=== PATIENT | female | born 1945 | race Caucasian/White ===

== ENCOUNTER → 2017-03-21 | Outpatient (CLI) | payer MEDICARE, OTHER ==
[~2017-03-21] MED LIST: ATENPOW PO; PERCOCET PO; [UNRECOGNIZED DRUG - OTHER] PO
--- NOTE | 2017-03-22 08:45 | REP ---
MR BRAIN WITHOUT CONTRAST: HISTORY: Concussion. Scattered punctate areas of increased signal intensity on T2-weighted images are present in the periventricular and subcortical white matter. This represents small vessel ischemic disease. There is no intraparenchymal hemorrhage, infarct, mass, or midline shift. The ventricular system is normal in appearance. There is no extracerebral collection. The sinuses are clear. IMPRESSION: Minimal small vessel ischemic disease. Signed by Jarrod Marcum MD 03/22/2017 08:46 A
== END ==
LOC: M RAD 17:42
PROVIDERS: ATTEND Internal Medicine
DX: S06.0X1A Concussion with loss of consciousness of 30 minutes or less, initial encounter (principal); W18.30XA Fall on same level, unspecified, initial encounter; Y92.009 Unspecified place in unspecified non-institutional (private) residence as the place of occurrence of the external cause

== ENCOUNTER → 2017-06-06 | Outpatient (REF) ==
[~2017-06-06] MED LIST changes: +ACEP650S PR; +ACET1TAB17 PO; +ASPI1TAB PO; +ATOR1TAB19 PO; +CELE1CAP9 PO; +COLA100C5 PO; +COZA1TAB PO; +DULC10SU2 PR; +ENEMENE16 PR; +FERR325T16 PO; +FLUO20CA19 PO; +FOLI1TAB4 PO; +K-TA1TAB PO; +LOPR1TAB6 PO; +METO25TA4 PO; +MILKSUS PO; +NORC1TAB4 PO; +POTA10CA PO; +QVAR1AER2 INH; +folic acid PO
[2017-06-06 10:38] LABS: MEAN CORPUSCULAR HEMOGLOBIN 30.2 pg (27.0-33.0); MEAN CORPUSCULAR VOLUME 91.5 fl (80.0-96.0); RED CELL DISTRIBUTION WIDTH 13.7 % (11.5-14.5); WHITE BLOOD COUNT 13.2 K/mm3 (4.0-10.0)
[2017-06-06 10:50] LABS: ANION GAP 9 MEQ/L (8-16); BLOOD UREA NITROGEN 11 MG/DL (7-18); CALCIUM LEVEL 8.7 MG/DL (8.8-10.2); CARBON DIOXIDE LEVEL 28 MEQ/L (21-32); CHLORIDE LEVEL 104 MEQ/L (98-107); CREATININE FOR GFR 0.73 MG/DL (0.55-1.02); GLOMERULAR FILTRATION RATE > 60.0 (>39); GLUCOSE, FASTING 127 MG/DL (83-110); POTASSIUM SERUM 4.1 MEQ/L (3.5-5.1); SODIUM LEVEL 141 MEQ/L (136-145)
== END ==
PROVIDERS: ATTEND Internal Medicine
DX: I10 Essential (primary) hypertension (principal)

== ENCOUNTER → 2017-06-12 | Outpatient (REF) | payer MEDICARE, OTHER ==
[2017-06-12 11:55] LABS: ANION GAP 14 MEQ/L (8-16); BLOOD UREA NITROGEN 13 MG/DL (7-18); CARBON DIOXIDE LEVEL 23 MEQ/L (21-32); CHLORIDE LEVEL 105 MEQ/L (98-107); CREATININE FOR GFR 0.74 MG/DL (0.55-1.02); GLOMERULAR FILTRATION RATE > 60.0 (>39); GLUCOSE, FASTING 134 MG/DL (83-110); POTASSIUM SERUM 4.8 MEQ/L (3.5-5.1); SODIUM LEVEL 142 MEQ/L (136-145)
== END ==
PROVIDERS: ATTEND Internal Medicine
DX: I10 Essential (primary) hypertension (principal)

== ENCOUNTER → 2017-06-13 | Outpatient (REF) ==
[2017-06-13 11:47] LABS: MEAN CORPUSCULAR HEMOGLOBIN 30.4 pg (27.0-33.0); MEAN CORPUSCULAR HGB CONC 33.2 g/dl (32.0-36.5); MEAN CORPUSCULAR VOLUME 91.5 fl (80.0-96.0); RED CELL DISTRIBUTION WIDTH 13.7 % (11.5-14.5); WHITE BLOOD COUNT 11.5 K/mm3 (4.0-10.0)
== END ==
PROVIDERS: ATTEND Internal Medicine
DX: I10 Essential (primary) hypertension (principal)

== ENCOUNTER 2017-06-15 12:01 | Observation (INO) | payer MEDICARE, OTHER ==
[~2017-06-15] VITALS: Ht 170.2 cm; Wt 124.0 kg
[~2017-06-15 12:01] MED LIST changes: -ACEP650S PR; -ACET1TAB17 PO; -ASPI1TAB PO; -ATOR1TAB19 PO; -CELE1CAP9 PO; -COLA100C5 PO; -COZA1TAB PO; -DULC10SU2 PR; -ENEMENE16 PR; -FERR325T16 PO; -FLUO20CA19 PO; -FOLI1TAB4 PO; -K-TA1TAB PO; -LOPR1TAB6 PO; -METO25TA4 PO; -MILKSUS PO; -NORC1TAB4 PO; -POTA10CA PO; -QVAR1AER2 INH; -folic acid PO
[2017-06-15] MEDS ORDERED: ATOR1TAB19 PO (12:22)
[2017-06-15] MEDS ORDERED: FERR325T16 PO (12:22)
[2017-06-15] MEDS ORDERED: K-TA1TAB PO (12:22)
[2017-06-15] MEDS ORDERED: folic acid PO (12:22)
[2017-06-15] MEDS ORDERED: QVAR1AER2 INH (12:22)
[2017-06-15] MEDS ORDERED: COLA100C5 PO (12:22)
[2017-06-15] MEDS ORDERED: COZA1TAB PO (12:22)
[2017-06-15] MEDS ORDERED: LOPR1TAB6 PO (12:22)
[2017-06-15] MEDS ORDERED: CELE1CAP9 PO (12:22)
[2017-06-15] MEDS ORDERED: ACET1TAB17 PO (12:22)
[2017-06-15] MEDS ORDERED: FLUO20CA19 PO (12:22)
[2017-06-15 13:12] LABS: BASO # 0.1 K/mm3 (0.0-0.2); BASO % 0.7 % (0.0-1.0); EOS % 8.3 % (0.0-3.0); LARGE UNSTAINED CELL # 0.1 K/mm3 (0.0-0.4); LARGE UNSTAINED CELL % 1.2 % (0.0-4.0); LYMPH # 1.6 K/mm3 (1.5-4.5); LYMPH % 12.5 % (24.0-44.0); MEAN CORPUSCULAR HEMOGLOBIN 29.4 pg (27.0-33.0); MEAN CORPUSCULAR HGB CONC 31.9 g/dl (32.0-36.5); MEAN CORPUSCULAR VOLUME 92.3 fl (80.0-96.0); MONO # 0.6 K/mm3 (0.0-0.8); MONO % 5.4 % (0.0-5.0); NEUTROPHILS # 8.6 K/mm3 (1.8-7.7); PLATELET COUNT, AUTOMATED 416 k/mm3 (150-450); RED CELL DISTRIBUTION WIDTH 13.8 % (11.5-14.5)
--- NOTE | 2017-06-15 13:17 | REP ---
Clinical: Chest pain with recent cardiac surgery . Comparison: 03/24/2013 . Technique: PA and lateral. Findings: The cardiac silhouette is normal in size. There is evidence for prior sternotomy and aortic valve repair. The lung rivas are clear and without acute consolidation, effusion, or pneumothorax. The skeletal structures are intact and normal. Impression: 1. Status post sternotomy and valve replacement. 2. No acute consolidation, effusion, or pneumothorax. Signed by Guanaco Hilton MD 06/15/2017 01:07 P
[2017-06-15 13:23] LABS: INR 1.05
[2017-06-15 13:25] LABS: ALBUMIN 3.3 GM/DL (3.2-5.2); ALBUMIN/GLOBULIN RATIO 1.14 (1.00-1.93); ALT/SGPT 18 U/L (12-78); ANION GAP 9 MEQ/L (8-16); BILIRUBIN,DIRECT 0.1 MG/DL (0.0-0.2); BILIRUBIN,TOTAL 0.4 MG/DL (0.2-1.0); BLOOD UREA NITROGEN 20 MG/DL (7-18); CARBON DIOXIDE LEVEL 27 MEQ/L (21-32); CHLORIDE LEVEL 107 MEQ/L (98-107); CREATININE FOR GFR 0.68 MG/DL (0.55-1.02); GLOMERULAR FILTRATION RATE > 60.0 (>39); GLUCOSE, FASTING 98 MG/DL (83-110); POTASSIUM SERUM 4.5 MEQ/L (3.5-5.1); SODIUM LEVEL 143 MEQ/L (136-145); TOTAL PROTEIN 6.2 GM/DL (6.4-8.2)
[2017-06-15 13:27] LABS: ALKALINE PHOSPHATASE 145 U/L (45-117); AST/SGOT 21 U/L (15-37)
--- NOTE | 2017-06-15 14:18 | REP ---
Clinical: Chest pain status post atrial valve repair. Findings: The patient is status post aortic valve repair with sternotomy. Atherosclerotic changes to the coronary arteries and thoracic aorta noted without cardiomegaly or pericardial effusion and no mediastinal or overlying subcutaneous tissue inflammatory changes or abnormalities are identified. The bilateral lung rivas demonstrate moderate COPD/emphysematous changes and minimal scattered basilar scarring. No focal consolidation, pleural effusion or pneumothorax. Tracheobronchial tree is patent. Musculoskeletal structures are intact. Limited evaluation of the upper abdomen demonstrates incompletely evaluated 7.7 cm left renal cyst. Impression: 1. Chronic pleuroparenchymal changes without evidence for acute process. 2. Mediastinum demonstrates evidence for recent sternotomy and aortic valve repair without acute process. 3. 7.7 cm left renal cyst. Signed by Guanaco Hilton MD 06/15/2017 02:09 P
[2017-06-15] MEDS ORDERED: ACEP650S PR (16:11)
[2017-06-15] MEDS ORDERED: ASPI1TAB PO (16:11)
[2017-06-15] MEDS ORDERED: MILKSUS PO (16:11)
[2017-06-15] MEDS ORDERED: FOLI1TAB4 PO (16:11)
[2017-06-15] MEDS ORDERED: METO25TA4 PO (16:11)
[2017-06-15] MEDS ORDERED: DULC10SU2 PR (16:11)
[2017-06-15] MEDS ORDERED: ENEMENE16 PR (16:11)
[2017-06-15] MEDS ORDERED: POTA10CA PO (16:11)
[2017-06-15] MEDS ORDERED: NORC1TAB4 PO (16:13)
[2017-06-15] MEDS ORDERED: NORCO, ANEXSIA 5/325MG TABLET (HYDROcodone/ACETAMINOPHEN) PO PRN (16:45)
[2017-06-15] MEDS ORDERED: MOM 30ML SUSPENSION UDC PO PRN (16:45)
[2017-06-15] MEDS ORDERED: BISACODYL 10 MG SUPP PR PRN (16:45)
[2017-06-15] MEDS ORDERED: ACETAMINOPHEN 650 MG SUPP PR PRN (16:45)
[2017-06-15] MEDS ORDERED: FLEET ENEMA PR PRN (16:45)
--- NOTE | 2017-06-15 17:22 | HPEPDOC ---
General Date of Admission 06/15/17 Attending Physician: GORDO DUVALL MD Chief Complaint The patient is a 71-year-old female admitted with a reason for visit of Chest Pain. History of Present Illness 71-year-old female with past medical history of hypertension, dyslipidemia, depression, anxiety, morbid obesity, aortic stenosis status post aortic valve replacement at [facility] on May 29, 2017 who is currently rehabilitating at [facility] presented to the ER with a chief complaint of chest pain. The patient states that she has been having intermittent chest pain over the last 1-2 days. She reports the pain to be sharp and located in the midsternal region. She reports that the sensation is fleeting, and denies any specific alleviating or aggravating factors. She does note that she did have a cardiac catheterization as well during that hospitalization, and was not found to have any occlusive coronary artery disease. She denies any fevers, chills, shortness of breath, abdominal pain, or any nausea/vomiting/diarrhea. In the ER, an EKG revealed nonspecific changes ST changes. Initial troponin is negative. However, the patient was noted to have an elevated D-Dimer level. The patient will be admitted to the hospitalist service to rule out ACS, and obtain a CTA of the Chest to rule out PE (dye allergy, requiring premedication regimen over 13 hours). Home Medications Scheduled (Celecoxib) 200 Mg Cap, 200 MG PO DAILY, (Reported) Aspirin (Aspirin 81) 81 Mg Tab, 81 MG PO DAILY, (Reported) Atorvastatin Calcium (Atorvastatin Calcium) 10 Mg Tab, 10 MG PO QHS, (Reported) Beclomethasone Dipropionate (Qvar) 80 Mcg/Act Aer, 2 PUFFS INH BID, (Reported) Docusate Sodium (Colace) 100 Mg Cap, 100 MG PO DAILY, (Reported) Ferrous Gluconate (Ferrous Gluconate) 324 Mg Tab, 324 MG PO BID, (Reported) Fluoxetine Hcl (Fluoxetine HCl) 20 Mg Cap, 20 MG PO QHS, (Reported) Folic Acid (Folic Acid) 1 Mg Tab, 1 MG PO DAILY, (Reported) Losartan Potassium (Cozaar) 25 Mg Tab, 25 MG PO DAILY, (Reported) Metoprolol Tartrate (Metoprolol Tartrate) 25 Mg Tab, 25 MG PO BID, (Reported) Potassium Chloride (Klor-Con M10) 10 Meq Tabcr, 10 MEQ PO DAILY, (Reported) Scheduled PRN Acetaminophen (Acetaminophen) 325 Mg Tab, 650 MG PO Q4H PRN for PAIN, (Reported) Acetaminophen (Acephen) 650 Mg Sup, 650 MG NE Q4H PRN for PAIN OR FEVER, ( Reported) Acetaminophen/Hydrocodone (Saunemin 5-325 mg) 1 Tab Tab, 1 TAB PO Q4H PRN for PAIN SCALE 6-10, (Reported) Bisacodyl (Dulcolax) 10 Mg Sup, 10 MG NE DAILY PRN for CONSTIPATION, (Reported) Milk Of Magnesia (Milk of Magnesia) 1,200 Mg/15 Ml Tamara, 30 ML PO DAILY PRN for CONSTIPATION, (Reported) Sodium Phosphate/Biphosphate (Enema 7-19 gm/118Ml) 1 Ada Ada, 1 ADA NE DAILY PRN for CONSTIPATION, (Reported) Allergies Coded Allergies: Contrast Media (Verified Allergy, Unknown, 07/17/06) Past Medical History Medical History As noted in HPI. Surgical History Hysterectomy, gastric bypass, aortic valve replacement Family History Significant Family History: No pertinent family hx Social History * Smoker: Denies Alcohol: occationally Drugs: denies Lives at home by herself, ambulates without an assistive device, and is functionally independent at baseline. Currently residing at [facility] for rehabilitation following aortic valve replacement. Review of Symptoms Other systems 10 point review of systems negative unless otherwise specified in HPI. Physical Examination General Exam: Positive: Alert, Cooperative, No Acute Distress ENT Exam: Positive: Atraumatic, Mucous membr. moist/pink Neck Exam: Negative: JVD Chest Exam: Positive: Clear to auscultation, Normal air movement, Other ( sternotomy scar noted, no erythema, tenderness, or purulent discharge noted from wound.) Heart Exam: Positive: Rate Normal, Normal S1, Normal S2 Abdomen Exam: Positive: Soft, Negative: Tenderness Extremity Exam: Negative: Tenderness, Swelling Psych Exam: Positive: Oriented x 3 Vital Signs Vital Signs Date Time Temp Pulse Resp B/P (MAP) Pulse Ox O2 Delivery O2 Flow Rate FiO2 06/15/17 15:31 70 98 06/15/17 15:27 132/63 (86) 06/15/17 14:27 18 06/15/17 12:17 97.6 Laboratory Data Labs 24H Laboratory Tests 2 06/15/17 12:49: Prothrombin Time 13.8, Prothromb Time International Ratio 1.05, Activated Partial Thromboplast Time 28.8, D-Dimer, Quantitative 2365.6H, Anion Gap 9, Glomerular Filtration Rate > 60.0, Calcium Level 9.0, Aspartate Amino Transf ( AST/SGOT) 21, Alanine Aminotransferase (ALT/SGPT) 18, Alkaline Phosphatase 145H , Total Bilirubin 0.4, Direct Bilirubin 0.1, Total Creatine Kinase 52, Creatine Kinase MB 1.0, Creatine Kinase MB Relative Index 1.92, Troponin I < 0.02, Total Protein 6.2L, Albumin 3.3, Albumin/Globulin Ratio 1.14, Lipase 144 06/15/17 12:50: White Blood Count 12.0H, Red Blood Count 4.01, Hemoglobin 11.8L, Hematocrit 37.0 , Mean Corpuscular Volume 92.3, Mean Corpuscular Hemoglobin 29.4, Mean Corpuscular Hemoglobin Concent 31.9L, Red Cell Distribution Width 13.8, Platelet Count 416, Neutrophils (%) (Auto) 72.0H, Lymphocytes (%) (Auto) 12.5L, Monocytes (%) (Auto) 5.4H, Eosinophils (%) (Auto) 8.3H, Basophils (%) (Auto) 0.7 , Neutrophils # (Auto) 8.6H, Lymphocytes # (Auto) 1.6, Monocytes # (Auto) 0.6, Eosinophils # (Auto) 1.0H, Basophils # (Auto) 0.1, Large Unclassified Cells % 1.2, Large Unclassified Cells # 0.1 CBC/BMP Laboratory Tests 06/15/17 12:49 06/15/17 12:50 Red Blood Count 4.01, Mean Corpuscular Volume 92.3, Mean Corpuscular Hemoglobin 29.4, Mean Corpuscular Hemoglobin Concent 31.9 L, Red Cell Distribution Width 13.8, Neutrophils (%) (Auto) 72.0 H, Lymphocytes (%) (Auto) 12.5 L, Monocytes (% ) (Auto) 5.4 H, Eosinophils (%) (Auto) 8.3 H, Basophils (%) (Auto) 0.7, Neutrophils # (Auto) 8.6 H, Lymphocytes # (Auto) 1.6, Monocytes # (Auto) 0.6, Eosinophils # (Auto) 1.0 H, Basophils # (Auto) 0.1 Plan / VTE VTE Prophylaxis Ordered?: Yes Plan Plan Chest Pain, R/O ACS, PE EKG with non-specific ST changes noted in precordial leads Initial troponin negative, will serially trend Patient's D-dimer also noted to be elevated--given the patient's vague symptoms and recent hx of surgery, we will need to rule out PE The patient does have a history of dye allergy (Hives, itchy throat--but no associated dyspnea, tongue swelling)---We will start the patient on a premedication regimen with Prednisone 50mg x 3 and Benadryl 50mg x 1 over 13 hours. I did discuss this regimen with Dr. Gardner of Radiology, and we will prepare the patient for our CT study accordingly. In the mean time we will start the patient on Lovenox 1mg/kg SC BID for treatment of PE, until it can be definitively ruled out. Bleeding risks, benefits, and alternative options discussed with the patient and daughter extensively at the bedside. We will cont to monitor on telemetry History of Aortic Stenosis s/p aortic valve replacement Replaced on 05/29/17 @ [facility] had a cardiac cath which showed no occlusive CAD according to the patient Obtain records order placed Continue aspirin, metoprolol, statin Hypertension, stable Continue losartan, metoprolol Dyslipidemia Continue statin Depression/anxiety, stable Continue fluoxetine DVT prophylaxis Already on Lovenox The patient will be admitted under the service of Dr. Duvall, who will begin to follow the patient on 06/16/17 at 7 AM. ANITRA LEES MD Jun 15, 2017 17:22
[2017-06-15] MEDS ORDERED: ENOXAPARIN 120 MG/0.8 ML SYR (J1650) SC ONE (17:30)
[2017-06-15] MEDS: predniSONE 50 MG TAB PO SCH (19:20)
[2017-06-15] MEDS ORDERED: FLUoxetine 20 MG CAP PO SCH (21:00)
[2017-06-15] MEDS ORDERED: ATORVASTATIN 10 MG TAB PO SCH (21:00)
[2017-06-15 22:04] VITALS: BP 170/64
[2017-06-15] MEDS: FERROUS GLUCONATE 324 MG TAB PO SCH (22:24)
[2017-06-15] MEDS: METOPROLOL TART 25 MG TABLET PO SCH (22:25)
[2017-06-15] MEDS ORDERED: ENOXAPARIN 120 MG/0.8 ML SYR (J1650) SC SCH (23:00)
[2017-06-15 23:58] VITALS: BP 126/63
[2017-06-16] MEDS: predniSONE 50 MG TAB PO SCH ×2 (00:13→06:07)
[2017-06-16 03:52] VITALS: BP 106/67
[2017-06-16] MEDS ORDERED: diphenhydrAMINE 50 MG CAP PO ONE (06:00)
[2017-06-16 06:25] LABS: MEAN CORPUSCULAR HEMOGLOBIN 30.5 pg (27.0-33.0); MEAN CORPUSCULAR HGB CONC 33.5 g/dl (32.0-36.5); MEAN CORPUSCULAR VOLUME 91.1 fl (80.0-96.0); RED CELL DISTRIBUTION WIDTH 13.5 % (11.5-14.5); WHITE BLOOD COUNT 10.2 K/mm3 (4.0-10.0)
[2017-06-16 06:51] LABS: ANION GAP 7 MEQ/L (8-16); BLOOD UREA NITROGEN 16 MG/DL (7-18); CALCIUM LEVEL 9.4 MG/DL (8.8-10.2); CARBON DIOXIDE LEVEL 27 MEQ/L (21-32); CHLORIDE LEVEL 106 MEQ/L (98-107); CREATININE FOR GFR 0.55 MG/DL (0.55-1.02); GLOMERULAR FILTRATION RATE > 60.0 (>39); GLUCOSE, FASTING 163 MG/DL (83-110); MAGNESIUM LEVEL 2.3 MG/DL (1.8-2.4); POTASSIUM SERUM 4.4 MEQ/L (3.5-5.1); SODIUM LEVEL 140 MEQ/L (136-145)
[2017-06-16] MEDS ORDERED: ISOVUE-370 76% 100ML VIAL (Q9967) As Ordered ONE (07:02)
[2017-06-16 08:00] VITALS: BP 133/64
--- NOTE | 2017-06-16 08:07 | ECGEPIP ---
Stationary ECG Study [facility] - ED Test Date: 2017-06-15 Pat Name: RAMY RICE Department: Room: - Gender: F Psychologist Clinical: cindy : 1945 Requested By: YANNICK Figueroa Order Number: [id number] Reading MD: Rain Scott Measurements Intervals [place] Rate: 70 P: 26 MI: 216 QRS: -1 QRSD: 101 T: 45 QT: 409 QTc: 444 Interpretive Statements SINUS RHYTHM WITH FIRST DEGREE AV BLOCK POSSIBLE LEFT ATRIAL ENLARGEMENT SEPTAL MYOCARDIAL INFARCTION, OF INDETERMINATE AGE NSTTW ABNOMALITY Electronically Signed On 06-16-2017 8:07:45 EDT by Rain Scott
--- NOTE | 2017-06-16 08:14 | ECGEPIP ---
Stationary ECG Study [facility] - ED Test Date: 2017-06-15 Pat Name: RAMY RICE Department: Room: [place] [address] Gender: F Bee Breeder: jenise : 1945 Requested By: YANNICK Figueroa Order Number: [id number] Reading MD: Rain Scott Measurements Intervals [place] Rate: 71 P: 22 CA: 224 QRS: -3 QRSD: 102 T: 64 QT: 410 QTc: 448 Interpretive Statements SINUS RHYTHM WITH FIRST DEGREE AV BLOCK POSSIBLE LEFT ATRIAL ENLARGEMENT POSSIBLE LEFT VENTRICULAR HYPERTROPHY POSSIBLE SEPTAL MYOCARDIAL INFARCTION, OF INDETERMINATE AGE NSTTW ABNORMALITY SIMILAR 06/15/17 12:28 Electronically Signed On 06-16-2017 8:14:24 EDT by Rain Scott
--- NOTE | 2017-06-16 08:38 | IPNPDOC ---
Text Note Date of Service The patient was seen on 06/16/17. NOTE SUBJECTIVE: Patient seen and examined at bedside. No acute overnight events reported. No further episodes of chest pain. Patient describes again her history of chest pain, occurring over the last 2-3 days, most with exertion, ' fleeting', left anterior chest, relieved with palpation. Denies shortness of breath, diaphoresis, headaches, N/V/D, abdominal pain. OBJECTIVE: General: NAD, lying comfortably in bed HEENT: NC/AT, EOMI, PERRL Lungs: CTA B/L Heart: soft systolic murmur, systolic click, RRR Abd: obese, soft, NT, +BS Ext: no edema Neuro: no gross focal deficits Psych: AAOx3 Assessment/Plan 1. Chest Pain - ACS ruled out - concern for PE - patient prepped for CTA today - case has been d/w with radiology - discussed again allergy to dye - hives, itchy throat - recent cardiac cath tolerated contrast with pre-prep - cont to monitor on telemetry 2. s/p AVR - Replaced on 05/29/17 @ [facility] - appears to be tissue valve - apparently had a cardiac cath which showed no occlusive CAD according to the patient - Obtain records order placed - Continue aspirin, metoprolol, statin 3. HTN - stable - continue losartan, metoprolol 4. Dyslipidemia - continue statin 5. Depression/anxiety, stable - continue fluoxetine 6. Morbid obesity - further complicates medical care 7. DVT prophylaxis - Therpaeutic Lovenox for possible PE VS,Fishbone, I+O VS, Fishbone, I+O Laboratory Tests 06/15/17 12:49 06/15/17 12:50 Red Blood Count 4.01, Mean Corpuscular Volume 92.3, Mean Corpuscular Hemoglobin 29.4, Mean Corpuscular Hemoglobin Concent 31.9 L, Red Cell Distribution Width 13.8, Neutrophils (%) (Auto) 72.0 H, Lymphocytes (%) (Auto) 12.5 L, Monocytes (% ) (Auto) 5.4 H, Eosinophils (%) (Auto) 8.3 H, Basophils (%) (Auto) 0.7, Neutrophils # (Auto) 8.6 H, Lymphocytes # (Auto) 1.6, Monocytes # (Auto) 0.6, Eosinophils # (Auto) 1.0 H, Basophils # (Auto) 0.1 06/16/17 05:49 Red Blood Count 4.05, Mean Corpuscular Volume 91.1, Mean Corpuscular Hemoglobin 30.5, Mean Corpuscular Hemoglobin Concent 33.5, Red Cell Distribution Width 13.5 , Calcium Level 9.4, Total Creatine Kinase 44 Vital Signs Date Time Temp Pulse Resp B/P (MAP) Pulse Ox O2 Delivery O2 Flow Rate FiO2 06/16/17 08:00 97.4 80 20 133/64 (87) 94 Room Air I&O- Last 24 Hours up to 6 AM 06/16/17 06:00 Intake Total 180 ml Output Total 500 ml Balance -320 ml GORDO DUVALL MD Jun 16, 2017 08:38
[2017-06-16] MEDS ORDERED: FOLIC ACID 1 MG TAB PO SCH (09:00)
[2017-06-16] MEDS ORDERED: POTASSIUM CHLORIDE 10 MEQ SR TABLET PO SCH (09:00)
[2017-06-16] MEDS ORDERED: LOSARTAN 25 MG TAB PO SCH (09:00)
[2017-06-16] MEDS ORDERED: ASPIRIN 81 MG ENTERIC TAB PO SCH (09:00)
[2017-06-16] MEDS ORDERED: DOCUSATE SODIUM 100 MG CAP PO SCH (09:00)
--- NOTE | 2017-06-16 09:02 | REP ---
Clinical: Shortness of breath. Recent cardiac surgery. Technique: Axial contrast enhanced images from the thoracic inlet to the upper abdomen using 100 ml Isovue 370 intravenous contrast material with multiplanar re-formations. Findings: Satisfactory enhancement of the pulmonary vasculature is achieved and no filling defects are identified to suggest pulmonary embolus. Further evaluation of the mediastinum demonstrates normal thoracic aorta without evidence for aneurysm or dissection. Mild cardiomegaly remains stable. The patient is noted to be status post sternotomy and cardiac valve repair. No pericardial effusion. Lung rivas demonstrate diffuse chronic age-related interstitial changes. Mild pulmonary vascular congestion without evidence for interstitial edema or pulmonary edema cannot be excluded. No focal consolidation, effusion or pneumothorax. Tracheobronchial tree is patent. No axillary, hilar or mediastinal adenopathy. Skeletal structures demonstrate degenerative changes. Impression: No evidence for pulmonary embolus. Chronic changes as described above. Pulmonary vascular congestion without interstitial edema or pulmonary edema. No obvious acute process. Signed by Guanaco Hilton MD 06/16/2017 08:53 A
--- NOTE | 2017-06-16 09:20 | REP ---
Clinical: Bilateral lower extremity pain . Technique: Bonds scale and color Doppler evaluation using linear high frequency transducer. Findings: Ultrasound examination of the right and left lower extremity deep venous structures from the common femoral vein to the popliteal vein demonstrates normal compressibility flow and wave patterns in response to respiration and augmentation. There is no evidence for deep venous thrombosis. Impression: No evidence for deep venous thrombosis. Signed by Guanaco Hilton MD 06/16/2017 09:12 A
[2017-06-16] MEDS: METOPROLOL TART 25 MG TABLET PO SCH (09:39)
[2017-06-16 09:40] VITALS: BP 133/64
[2017-06-16] MEDS: FERROUS GLUCONATE 324 MG TAB PO SCH (09:40)
[2017-06-16 12:00] VITALS: BP 137/67
--- NOTE | 2017-06-17 09:03 | ECGEPIP ---
Stationary ECG Study [facility] Test Date: 2017-06-16 Pat Name: RAMY RICE Department: Room: - Gender: F Talent Sourcer: KIRSTY : 1945 Requested By: ANITRA LEES Order Number: [id number] Reading MD: Scott Rocha Measurements Intervals [place] Rate: 75 P: 30 CA: 217 QRS: -2 QRSD: 95 T: 58 QT: 404 QTc: 452 Interpretive Statements Normal sinus rhythm with first degree AV block Left atrial enlargement Anterior DC, age indeterminate Left ventricular hypertrophy with repolarization abnormality No significant change when compared to prior tracing of 06/15/2017 Electronically Signed On 06-17-2017 9:02:51 EDT by Scott Rocha
== END 2017-06-16 13:35 ==
LOC: EDBD 12:01 → M ED 12:01 → M ED INP 18:26 → M PCU 21:52
PROVIDERS: ADMIT Internal Medicine; ATTEND Internal Medicine
DX: R07.9 Chest pain, unspecified (principal); I10 Essential (primary) hypertension; E78.5 Hyperlipidemia, unspecified; F41.9 Anxiety disorder, unspecified; F32.9 Major depressive disorder, single episode, unspecified; E66.01 Morbid (severe) obesity due to excess calories; Z79.02 Long term (current) use of antithrombotics/antiplatelets; Z79.82 Long term (current) use of aspirin; Z95.2 Presence of prosthetic heart valve; Z91.041 Radiographic dye allergy status
CPT/HCPCS: 36415; 71020; 71250; 71275; 80048; 80076; 82550; 82553; 83690; 83735; 84484; 85025; 85027; 85379; 85610; 85730; 93005; 93041; 93970; 94760; 96372; 99285; G0378; J1650; Q9967

== ENCOUNTER → 2017-06-15 | Outpatient (REF) | PROVIDERS: ATTEND Internal Medicine | DX: R10.9 Unspecified abdominal pain (principal) ==

== ENCOUNTER → 2018-06-18 | Outpatient (REF) | payer MEDICARE, OTHER | LOC: M SFHCLERA 19:56 | DX: R30.0 Dysuria (principal) | CPT/HCPCS: 87086 ==

== ENCOUNTER → 2018-06-20 | Outpatient (CLI) | payer MEDICARE, OTHER | LOC: M WHC 10:30 | DX: Z12.31 Encounter for screening mammogram for malignant neoplasm of breast (principal) | CPT/HCPCS: 77067 ==

== ENCOUNTER → 2020-05-19 | Outpatient (CLI) | payer MEDICARE, BC ==
[~2020-05-19] MED LIST changes: +ACEP650S PR; +ACET1TAB55 PO; +ASPI81TA26 PO; +ATOR1TAB19 PO; +CELE1CAP9 PO; +COLA100C5 PO; +COZA1TAB PO; +DULC10SU2 PR; +ENEMENE4 PR; +FERR325T16 PO; +FLUO20CA22 PO; +FOLI1TAB11 PO; +K-TA1TAB PO; +KLOR10TA76 PO; +LOPR1TAB6 PO; +METO25TA4 PO; +MILK120011 PO; +NORC1TAB7 PO; +OXYC1TAB23 PO; -PERCOCET PO; +QVAR80AE10 INH; +folic acid PO
--- NOTE | 2020-06-03 17:42 | REPMRS ---
Patient History The patient states she has not had a clinical breast exam in over a year. Patient is postmenopausal. Family history of breast cancer at age 50 or over in maternal aunt. No Hormone Replacement Therapy Digital Woman Screen Mammo: May 19, 2020 - Exam #: [id number] Bilateral CC and MLO view(s) were taken. Technologist: Concepcion Wolfe, Technologist Prior study comparison: June 20, 2018, bilateral digital woman screen mammo performed at [facility]. August 05, 2013, digital woman screen mammo performed at [facility]. September 19, 2011, bilateral bilat screen digital mammo performed at [facility]. FINDINGS: The breast tissue is almost entirely fat. The Volpara volumetric breast density category is: A. There has been no change in the appearance of the mammogram from the prior studies. There is no interval development of dominant mass, architectural distortion, or grouped microcalcification typical of malignancy. 3-D tomosynthesis shows no additional findings. Assessment: BI-RADS/ACR category 1 mammogram. Negative Mammogram. Recommendation Routine screening mammogram of both breasts in 1 year (for women over age 40). This patient's Lifetime Breast Cancer RIsk is estimated at 6.1 %. This mammogram was interpreted with the aid of an FDA-approved computer-aided dectection system. Electronically Signed By: Tremayne Gardner MD 06/03/20 [id number]
== END ==
LOC: M WHC 17:07
PROVIDERS: ATTEND Internal Medicine
DX: Z12.31 Encounter for screening mammogram for malignant neoplasm of breast (principal); Z78.0 Asymptomatic menopausal state

== ENCOUNTER → 2021-05-20 | Outpatient (CLI) | payer MEDICARE, BC ==
[~2021-05-20] MED LIST changes: +FERR324T21 PO; -FERR325T16 PO
--- NOTE | 2021-05-20 12:29 | REPMRS ---
Patient History The patient states she has not had a clinical breast exam in over a year. Family history of breast cancer at age 50 or over in maternal aunt. No Hormone Replacement Therapy Patient states no breast complaints today. Patient has signed MRS History Sheet. Digital Woman Screen Mammo: May 20, 2021 - Exam #: [id number] Bilateral CC and MLO view(s) were taken. Technologist: RT Jordi Prior study comparison: May 19, 2020, bilateral digital woman screen mammo performed at [facility] [place]. June 20, 2018, bilateral digital woman screen mammo performed at [facility] [place]. August 05, 2013, digital woman screen mammo performed at [facility] [place]. FINDINGS: The breast tissue is almost entirely fat. The Volpara volumetric breast density category is: A. There has been no change in the appearance of the mammogram from the prior studies. There is no interval development of dominant mass, architectural distortion, or grouped microcalcification typical of malignancy. 3-D tomosynthesis shows no additional findings. Assessment: BI-RADS/ACR category 1 mammogram. Negative Mammogram. Recommendation Routine screening mammogram of both breasts in 1 year (for women over age 40). This patient's [facility] Lifetime Breast Cancer RIsk is estimated at 5.6 %. This mammogram was interpreted with the aid of an FDA-approved computer-aided dectection system. Electronically Signed By: Tremayne Gardner MD 05/20/21 [id number]
== END ==
LOC: M WHC 10:38
PROVIDERS: ATTEND Internal Medicine
DX: Z12.31 Encounter for screening mammogram for malignant neoplasm of breast (principal); Z80.3 Family history of malignant neoplasm of breast